=== PATIENT | male | born 1975 | race Hispanic/Latino ===

== ENCOUNTER 2020-02-02 06:19 | Inpatient (IN) | payer BC ==
[~2020-02-02] VITALS: Ht 172.7 cm; Wt 104.3 kg
[2020-02-02] MEDS ORDERED: MORPHINE SULFATE INJ 4 MG/ML INJ 1ML IV STA (06:31)
[2020-02-02] MEDS ORDERED: SODIUM CHLORIDE 0.9% 1000ML 1,000 ML IV STA (06:31)
[2020-02-02] MEDS ORDERED: PANTOPRAZOLE 40 MG 10ML VIAL IV STA (06:31)
[2020-02-02] MEDS ORDERED: ONDANSETRON HCL INJ 2MG/ML 2ML 2 MG/ML VIAL IV STA (06:31)
[2020-02-02 06:55] LABS: BASOPHILS # (AUTO) 0.1 (0.0-0.1); BASOPHILS % 0.6 % (0.0-1.0); EOSINOPHILS # (AUTO) 0.2 (0.0-0.4); EOSINOPHILS % 2.9 % (0.0-6.0); HEMATOCRIT 48.3 % (38.2-49.6); HEMOGLOBIN 16.5 g/dL (14.0-18.0); LYMPHOCYTES # (AUTO) 1.1 (1.0-3.2); LYMPHOCYTES % 13.5 % (18.0-39.1); MEAN CORPUSCULAR HEMOGLOBIN 29.6 pg (28-32); MEAN CORPUSCULAR HGB CONC 34.2 g/dL (31-35); MEAN CORPUSCULAR VOLUME 86.7 fL (81-99); MONOCYTES # (AUTO) 0.9 (0.2-0.8); MONOCYTES % 10.5 % (4.4-11.3); NEUTROPHILS % 71.8 % (38.7-80.0); PLATELET COUNT 182 x10e3/uL (140-360); RED BLOOD COUNT 5.57 x10e6/uL (4.3-5.7); RED CELL DISTRIBUTION WIDTH 12.4 % (11.7-14.4)
[2020-02-02] MEDS ORDERED: ONDANSETRON HCL INJ 2MG/ML 2ML 2 MG/ML VIAL ONE (06:55)
[2020-02-02] MEDS ORDERED: SODIUM CHLORIDE 0.9% 1000ML 1,000 ML ONE (06:55)
[2020-02-02] MEDS ORDERED: PANTOPRAZOLE 40 MG 10ML VIAL ONE (06:55)
[2020-02-02] MEDS ORDERED: MORPHINE SULFATE INJ 4 MG/ML INJ 1ML ONE (06:55)
[2020-02-02 06:58] LABS: CLARITY,URINE CLEAR (CLEAR); COLOR,URINE YELLOW (YELLOW); KETONES,URINE NEGATIVE (NEGATIVE); LEUKOCYTE ESTERASE ,URINE NEGATIVE (NEGATIVE); NITRITE,URINE NEGATIVE (NEGATIVE); URINE UROBILINOGEN 1 mg/dL (0.2 - 1)
[2020-02-02 06:59] LABS: PROTEIN,URINE DIPSTICK TRACE (NEGATIVE)
[2020-02-02 07:06] LABS: INR 0.87; PROTHROMBIN TIME 12.3 seconds (11.9-14.5)
[2020-02-02 07:11] LABS: BACTERIA,URINE RARE /HPF; EPITHELIAL CELLS,URINE FEW /LPF
[2020-02-02 07:14] LABS: ALANINE AMINOTRANSFERASE 20 IU/L (0-55); ALBUMIN 3.7 g/dL (3.5-5.0); ALBUMIN/GLOBULIN RATIO 1.1 (0.8-2.0); ALKALINE PHOSPHATASE 82 IU/L (40-150); AMYLASE 288 U/L (25-125); BLOOD UREA NITROGEN 9 mg/dL (7-26); BUN/CREATININE RATIO 11 (6-25); CALCIUM 8.6 mg/dL (8.4-10.2); CARBON DIOXIDE 22 mmol/L (22-29); CHLORIDE 107 mmol/L (98-107); CREATINE KINASE 108 IU/L (30-200); CREATININE, SERUM 0.84 mg/dL (0.72-1.25); EST GLOMERULAR FILTRATION RATE > 60 ML/MIN (60-); GLUCOSE 158 mg/dL (74-118); LIPASE 610 U/L (8-78); MAGNESIUM 1.6 MG/DL (1.3-2.1); SODIUM 137 mmol/L (136-145)
[2020-02-02] MEDS ORDERED: PIPER-TAZ 3.375 GM 50 ML ONE (07:37)
[2020-02-02] MEDS ORDERED: SODIUM CHLORIDE 0.9% 50ML 50 ML ONE (07:43)
[2020-02-02] MEDS ORDERED: IOPAMIDOL 370 MG/ML 200 ML INFUS..BTL INJ ONE (07:43)
[2020-02-02] MEDS: PIPER-TAZ 3.375 GM 50 ML IV SCH ×4 (07:46→23:51)
[2020-02-02] MEDS ORDERED: SODIUM CHLORIDE 0.9% 1000ML 1,000 ML IV SCH (08:30)
[2020-02-02 09:41] VITALS: BP 132/80
[2020-02-02 09:45] VITALS: BP 132/80
[2020-02-02 11:01] VITALS: BP 124/79
[2020-02-02] MEDS: HYDROMORPHONE 1MG/1ML INJ IV PRN ×3 (11:51→21:15)
[2020-02-02] MEDS ORDERED: DEXTROSE 50% SYRINGE 50 ML IV PRN (12:30)
[2020-02-02] MEDS ORDERED: HYDRALAZINE HCL 20 MG/ML VIAL IV PRN (12:30)
[2020-02-02] MEDS: LACTATED RINGER'S 1,000 ML INJ SCH ×3 (13:02→21:41)
[2020-02-02 15:48] VITALS: BP 122/73
[2020-02-02] MEDS: INSULIN REGULAR, HUMAN 100 UNIT/1 ML 3ML VIAL SQ SCH ×2 (16:30→20:08)
[2020-02-02] MEDS ORDERED: ATORVASTATIN CA20 MG PO (19:22)
[2020-02-02] MEDS ORDERED: GLIPIZIDE ER5 MG PO (19:22)
[2020-02-02] MEDS ORDERED: LISINOPRIL10 MG PO (19:22)
[2020-02-02] MEDS ORDERED: CYMBALTA60 MG PO (19:22)
[2020-02-02] MEDS ORDERED: SINGULAIR10 MG PO (19:22)
[2020-02-02] MEDS ORDERED: OMEPRAZOLE40 MG PO (19:22)
[2020-02-02 20:00] VITALS: BP 123/86
[2020-02-02 20:15] VITALS: BP 123/86
[2020-02-02] MEDS ORDERED: ZOLPIDEM TARTRATE 5 MG TAB PO PRN (21:00)
[2020-02-02] MEDS: ONDANSETRON HCL INJ 2MG/ML 2ML 2 MG/ML VIAL IV PRN (21:15)
[2020-02-03] VITALS (8 sets, daily range): BP systolic 127–146; BP diastolic 69–90
[2020-02-03] MEDS: ONDANSETRON HCL INJ 2MG/ML 2ML 2 MG/ML VIAL IV PRN ×4 (01:04→20:20)
[2020-02-03] MEDS: HYDROMORPHONE 1MG/1ML INJ IV PRN ×5 (01:04→20:20)
[2020-02-03] MEDS: ACETAMINOPHEN 650 MG SUPP PR PRN ×2 (01:57→13:31)
[2020-02-03] MEDS: LACTATED RINGER'S 1,000 ML INJ SCH ×6 (01:57→20:20)
[2020-02-03] MEDS ORDERED: PANTOPRAZOLE 40 MG 10ML VIAL IV STA (02:31)
[2020-02-03] MEDS: PANTOPRAZOLE 40 MG 10ML VIAL IV SCH ×2 (02:45→15:28)
[2020-02-03] MEDS: PIPER-TAZ 3.375 GM 50 ML IV SCH ×3 (05:57→17:12)
[2020-02-03] MEDS: INSULIN REGULAR, HUMAN 100 UNIT/1 ML 3ML VIAL SQ SCH ×4 (07:30→20:37)
[2020-02-03] MEDS ORDERED: PANTOPRAZOLE 40 MG 10ML VIAL IV SCH (09:00)
[2020-02-03 10:19] LABS: BASOPHILS % 0.4 % (0.0-1.0); EOSINOPHILS # (AUTO) 0.2 (0.0-0.4); EOSINOPHILS % 4.2 % (0.0-6.0); HEMATOCRIT 40.8 % (38.2-49.6); LYMPHOCYTES # (AUTO) 1.6 (1.0-3.2); LYMPHOCYTES % 34.2 % (18.0-39.1); MEAN CORPUSCULAR HEMOGLOBIN 29.9 pg (28-32); MEAN CORPUSCULAR HGB CONC 34.3 g/dL (31-35); MONOCYTES # (AUTO) 0.5 (0.2-0.8); NEUTROPHILS # (AUTO) 2.4 (2.1-6.9); NEUTROPHILS % 50.6 % (38.7-80.0); PLATELET COUNT 162 x10e3/uL (140-360); RED BLOOD COUNT 4.69 x10e6/uL (4.3-5.7); RED CELL DISTRIBUTION WIDTH 12.4 % (11.7-14.4)
[2020-02-03 10:42] LABS: ALANINE AMINOTRANSFERASE 20 IU/L (0-55); ALBUMIN/GLOBULIN RATIO 1.1 (0.8-2.0); ALKALINE PHOSPHATASE 46 IU/L (40-150); AMYLASE 69 U/L (25-125); ANION GAP 12.9 mmol/L (8-16); BLOOD UREA NITROGEN 6 mg/dL (7-26); BUN/CREATININE RATIO 8 (6-25); CALCIUM 8.4 mg/dL (8.4-10.2); CARBON DIOXIDE 26 mmol/L (22-29); CHLORIDE 105 mmol/L (98-107); CREATININE, SERUM 0.73 mg/dL (0.72-1.25); EST GLOMERULAR FILTRATION RATE > 60 ML/MIN (60-); GLUCOSE 117 mg/dL (74-118); LIPASE 38 U/L (8-78); POTASSIUM 3.9 mmol/L (3.5-5.1); SODIUM 140 mmol/L (136-145)
[2020-02-04] VITALS (8 sets, daily range): BP systolic 114–142; BP diastolic 70–87
[2020-02-04] MEDS: LACTATED RINGER'S 1,000 ML INJ SCH ×6 (00:10→20:34)
[2020-02-04] MEDS: PIPER-TAZ 3.375 GM 50 ML IV SCH ×5 (00:10→23:33)
[2020-02-04] MEDS: PANTOPRAZOLE 40 MG 10ML VIAL IV SCH ×2 (03:15→15:00)
[2020-02-04 05:58] LABS: BASOPHILS % 0.2 % (0.0-1.0); EOSINOPHILS # (AUTO) 0.2 (0.0-0.4); EOSINOPHILS % 3.2 % (0.0-6.0); HEMATOCRIT 41.6 % (38.2-49.6); HEMOGLOBIN 14.5 g/dL (14.0-18.0); LYMPHOCYTES # (AUTO) 1.3 (1.0-3.2); LYMPHOCYTES % 24.7 % (18.0-39.1); MEAN CORPUSCULAR HEMOGLOBIN 30.1 pg (28-32); MEAN CORPUSCULAR HGB CONC 34.9 g/dL (31-35); MEAN CORPUSCULAR VOLUME 86.3 fL (81-99); MONOCYTES # (AUTO) 0.5 (0.2-0.8); MONOCYTES % 8.8 % (4.4-11.3); NEUTROPHILS # (AUTO) 3.4 (2.1-6.9); NEUTROPHILS % 62.7 % (38.7-80.0); PLATELET COUNT 174 x10e3/uL (140-360); RED BLOOD COUNT 4.82 x10e6/uL (4.3-5.7)
[2020-02-04 06:32] LABS: ANION GAP 15.2 mmol/L (8-16); BLOOD UREA NITROGEN 5 mg/dL (7-26); BUN/CREATININE RATIO 6 (6-25); CALCIUM 9.3 mg/dL (8.4-10.2); CARBON DIOXIDE 26 mmol/L (22-29); CHLORIDE 104 mmol/L (98-107); CREATININE, SERUM 0.83 mg/dL (0.72-1.25); EST GLOMERULAR FILTRATION RATE > 60 ML/MIN (60-); GLUCOSE 104 mg/dL (74-118); MAGNESIUM 1.7 MG/DL (1.3-2.1); PHOSPHORUS 4.1 MG/DL (2.3-4.7); POTASSIUM 4.2 mmol/L (3.5-5.1); SODIUM 141 mmol/L (136-145)
[2020-02-04] MEDS: INSULIN REGULAR, HUMAN 100 UNIT/1 ML 3ML VIAL SQ SCH ×4 (07:30→20:53)
[2020-02-04] MEDS: TRAMADOL HCL 50 MG TAB PO PRN (15:37)
[2020-02-05] MEDS: TRAMADOL HCL 50 MG TAB PO PRN (00:08)
[2020-02-05 00:50] VITALS: BP 137/85
[2020-02-05] MEDS: PANTOPRAZOLE 40 MG 10ML VIAL IV SCH ×2 (02:45→13:44)
[2020-02-05 05:25] VITALS: BP 136/90
[2020-02-05] MEDS: PIPER-TAZ 3.375 GM 50 ML IV SCH ×2 (06:00→12:17)
[2020-02-05 06:15] LABS: BASOPHILS % 0.4 % (0.0-1.0); EOSINOPHILS # (AUTO) 0.3 (0.0-0.4); HEMATOCRIT 42.1 % (38.2-49.6); HEMOGLOBIN 14.6 g/dL (14.0-18.0); LYMPHOCYTES # (AUTO) 1.9 (1.0-3.2); LYMPHOCYTES % 36.2 % (18.0-39.1); MEAN CORPUSCULAR HEMOGLOBIN 29.8 pg (28-32); MEAN CORPUSCULAR HGB CONC 34.7 g/dL (31-35); MEAN CORPUSCULAR VOLUME 85.9 fL (81-99); MONOCYTES # (AUTO) 0.7 (0.2-0.8); NEUTROPHILS # (AUTO) 2.4 (2.1-6.9); PLATELET COUNT 184 x10e3/uL (140-360); RED CELL DISTRIBUTION WIDTH 11.9 % (11.7-14.4)
[2020-02-05 07:05] LABS: AMYLASE 70 U/L (25-125); LIPASE 32 U/L (8-78)
[2020-02-05 07:18] LABS: BLOOD UREA NITROGEN < 5 mg/dL (7-26); CALCIUM 9.2 mg/dL (8.4-10.2); CARBON DIOXIDE 28 mmol/L (22-29); CHLORIDE 103 mmol/L (98-107); CREATININE, SERUM 0.94 mg/dL (0.72-1.25); EST GLOMERULAR FILTRATION RATE > 60 ML/MIN (60-); GLUCOSE 99 mg/dL (74-118); SODIUM 140 mmol/L (136-145)
[2020-02-05 07:19] LABS: BUN/CREATININE RATIO 5 (6-25)
[2020-02-05 07:28] VITALS: BP 136/90
[2020-02-05] MEDS: INSULIN REGULAR, HUMAN 100 UNIT/1 ML 3ML VIAL SQ SCH ×2 (07:30→12:16)
[2020-02-05 09:31] VITALS: BP 134/54
[2020-02-05] MEDS ORDERED: OMEPRAZOLE40 MG PO (12:38)
[2020-02-05] MEDS ORDERED: PANTOPRAZOLE SO40 MG PO (12:45)
[2020-02-05 12:50] VITALS: BP 114/92
== END 2020-02-05 15:08 | disposition home or self-care (01) | DRG 391 ==
LOC: ER 06:30 → ERHOLD 08:31 → MED/SURG3 09:16
PROVIDERS: ADMIT Internal Medicine; ATTEND Internal Medicine
DX: K52.9 Noninfective gastroenteritis and colitis, unspecified (principal); K85.90 Acute pancreatitis without necrosis or infection, unspecified; E11.9 Type 2 diabetes mellitus without complications; E86.0 Dehydration; I10 Essential (primary) hypertension; F17.210 Nicotine dependence, cigarettes, uncomplicated; K21.9 Gastro-esophageal reflux disease without esophagitis; F10.10 Alcohol abuse, uncomplicated; K75.81 Nonalcoholic steatohepatitis (NASH); Z20.828 Contact with and (suspected) exposure to other viral communicable diseases
CPT/HCPCS: 36415; 71045; 74177; 76705; 80048; 80053; 81001; 82150; 82550; 82553; 82948; 83690; 83735; 84100; 84478; 84484; 85025; 85610; 85730; 87086; 93005; 99284; J1170; J2270; J2405; J2543; J7030; J7121; Q9967; U0002

== ENCOUNTER 2020-02-09 19:21 | Emergency (ER) | payer BC ==
[~2020-02-09] VITALS: Ht 172.7 cm; Wt 104.3 kg
[~2020-02-09 19:21] MED LIST: ATORVASTATIN CA20 MG PO; CYMBALTA60 MG PO; GLIPIZIDE ER5 MG PO; LISINOPRIL10 MG PO; OMEPRAZOLE40 MG PO; PANTOPRAZOLE SO40 MG PO; SINGULAIR10 MG PO
[2020-02-09] MEDS ORDERED: SODIUM CHLORIDE 0.9% 1000ML 1,000 ML IV STA (19:24)
[2020-02-09] MEDS ORDERED: MORPHINE SULFATE INJ 4 MG/ML INJ 1ML IV STA (19:35)
[2020-02-09 19:40] LABS: BASOPHILS % 0.3 % (0.0-1.0); EOSINOPHILS # (AUTO) 0.2 (0.0-0.4); HEMATOCRIT 42.6 % (38.2-49.6); HEMOGLOBIN 14.4 g/dL (14.0-18.0); LYMPHOCYTES # (AUTO) 1.5 (1.0-3.2); LYMPHOCYTES % 25.2 % (18.0-39.1); MEAN CORPUSCULAR HEMOGLOBIN 29.4 pg (28-32); MEAN CORPUSCULAR HGB CONC 33.8 g/dL (31-35); MEAN CORPUSCULAR VOLUME 86.9 fL (81-99); MONOCYTES # (AUTO) 0.5 (0.2-0.8); MONOCYTES % 8.3 % (4.4-11.3); NEUTROPHILS # (AUTO) 3.8 (2.1-6.9); NEUTROPHILS % 62.7 % (38.7-80.0); PLATELET COUNT 227 x10e3/uL (140-360); RED CELL DISTRIBUTION WIDTH 12.5 % (11.7-14.4)
[2020-02-09] MEDS ORDERED: ONDANSETRON HCL INJ 2MG/ML 2ML 2 MG/ML VIAL IV STA (19:48)
[2020-02-09 19:57] LABS: ALANINE AMINOTRANSFERASE 27 IU/L (0-55); ALBUMIN 3.6 g/dL (3.5-5.0); ALBUMIN/GLOBULIN RATIO 1.1 (0.8-2.0); ALKALINE PHOSPHATASE 76 IU/L (40-150); ANION GAP 11.8 mmol/L (8-16); BLOOD UREA NITROGEN 12 mg/dL (7-26); BUN/CREATININE RATIO 16 (6-25); CALCIUM 8.6 mg/dL (8.4-10.2); CARBON DIOXIDE 23 mmol/L (22-29); CHLORIDE 108 mmol/L (98-107); CREATININE, SERUM 0.77 mg/dL (0.72-1.25); EST GLOMERULAR FILTRATION RATE > 60 ML/MIN (60-); GLUCOSE 172 mg/dL (74-118); LIPASE 58 U/L (8-78); POTASSIUM 3.8 mmol/L (3.5-5.1); SODIUM 139 mmol/L (136-145)
[2020-02-09 20:03] LABS: CLARITY,URINE HAZY (CLEAR); COLOR,URINE YELLOW (YELLOW); KETONES,URINE NEGATIVE (NEGATIVE); LEUKOCYTE ESTERASE ,URINE NEGATIVE (NEGATIVE); NITRITE,URINE NEGATIVE (NEGATIVE); PROTEIN,URINE DIPSTICK NEGATIVE (NEGATIVE); URINE UROBILINOGEN 1 mg/dL (0.2 - 1)
[2020-02-09 20:04] LABS: BACTERIA,URINE FEW /HPF; EPITHELIAL CELLS,URINE FEW /LPF; RBC,URINE 0-5 /HPF (0-5); WBC,URINE (MAN) 0-5 /HPF (0-5)
[2020-02-09] MEDS ORDERED: DONNATAL/LIDOCAINE/MAALOX 30 ML SUSP PO STA (20:21)
[2020-02-09] MEDS ORDERED: LIDOCAINE VISC 2% SOLN 15 ML UDC ONE (20:41)
[2020-02-09] MEDS ORDERED: BELLADONNA ALK/PHENOBARBITAL 5 ML UDC ONE (20:41)
[2020-02-09] MEDS ORDERED: MAGNESIUM/ALUMINUM/SIMETHICONE 30 ML UDC ONE (20:42)
[2020-02-09 20:51] VITALS: BP 142/71
[2020-02-09] MEDS ORDERED: PEPCID20 MG PO (20:51)
== END 2020-02-09 20:59 | disposition home or self-care (01) ==
LOC: ER 19:25
DX: R10.13 Epigastric pain (principal); R11.0 Nausea; I10 Essential (primary) hypertension; E11.9 Type 2 diabetes mellitus without complications; M54.9 Dorsalgia, unspecified; G89.29 Other chronic pain; F17.210 Nicotine dependence, cigarettes, uncomplicated
CPT/HCPCS: 36415; 80053; 81001; 83690; 85025; 99283; J2270; J2405; J7030

== ENCOUNTER → 2020-03-10 | Day surgery (SDC) | payer BC ==
[~2020-03-10] MED LIST changes: +HYDROCODON-ACE1 EA11 PO; +LIDOCAINE HCL 2% LOCAL INJ 5 ML SDV VIAL INJ ONE; +METOCLOPRAMIDE HCL 10 MG/2ML VIAL ONE; +PANTOPRAZOLE 40 MG 10ML VIAL ONE; +PEPCID20 MG PO; +PROPOFOL IV EMULSION 10 MG/ML 20 ML VIAL ONE; +SUCRALFATE1 GM PO; +ULTRAM 50MG50 MG PO
[2020-03-10 08:37] VITALS: BP 126/74
== END | disposition home or self-care (01) ==
LOC: OR 06:05
PROVIDERS: ATTEND Internal Medicine Gastroenterology
DX: K29.60 Other gastritis without bleeding (principal); K31.7 Polyp of stomach and duodenum; K20.90 Esophagitis, unspecified without bleeding; K44.9 Diaphragmatic hernia without obstruction or gangrene; K21.9 Gastro-esophageal reflux disease without esophagitis; K76.0 Fatty (change of) liver, not elsewhere classified; I10 Essential (primary) hypertension; E78.00 Pure hypercholesterolemia, unspecified; M54.9 Dorsalgia, unspecified; E11.9 Type 2 diabetes mellitus without complications; F17.210 Nicotine dependence, cigarettes, uncomplicated; Z01.810 Encounter for preprocedural cardiovascular examination; Z01.812 Encounter for preprocedural laboratory examination; Z20.822 Contact with and (suspected) exposure to COVID-19; Z79.84 Long term (current) use of oral hypoglycemic drugs; Z68.35 Body mass index [BMI] 35.0-35.9, adult; Z87.19 Personal history of other diseases of the digestive system; Z80.0 Family history of malignant neoplasm of digestive organs
CPT/HCPCS: 43239; 93005; C9113; J2001; J2704; J2765; U0002

== ENCOUNTER 2020-03-19 13:57 | Emergency (ER) | payer BC ==
[~2020-03-19] VITALS: Ht 172.7 cm; Wt 104.3 kg
[~2020-03-19 13:57] MED LIST changes: -LIDOCAINE HCL 2% LOCAL INJ 5 ML SDV VIAL INJ ONE; -METOCLOPRAMIDE HCL 10 MG/2ML VIAL ONE; -PANTOPRAZOLE 40 MG 10ML VIAL ONE; -PROPOFOL IV EMULSION 10 MG/ML 20 ML VIAL ONE
[2020-03-19] MEDS ORDERED: FENTANYL CITRATE/PF 100MCG/2 ML INJ IV ONE (14:15)
[2020-03-19 14:32] LABS: BASOPHILS % 0.5 % (0.0-1.0); EOSINOPHILS # (AUTO) 0.1 (0.0-0.4); EOSINOPHILS % 0.7 % (0.0-6.0); HEMOGLOBIN 15.5 g/dL (14.0-18.0); LYMPHOCYTES # (AUTO) 2.1 (1.0-3.2); LYMPHOCYTES % 25.9 % (18.0-39.1); MEAN CORPUSCULAR HEMOGLOBIN 29.4 pg (28-32); MEAN CORPUSCULAR HGB CONC 33.7 g/dL (31-35); MEAN CORPUSCULAR VOLUME 87.3 fL (81-99); MONOCYTES # (AUTO) 0.5 (0.2-0.8); MONOCYTES % 6.6 % (4.4-11.3); NEUTROPHILS # (AUTO) 5.4 (2.1-6.9); NEUTROPHILS % 65.8 % (38.7-80.0); PLATELET COUNT 216 x10e3/uL (140-360); RED BLOOD COUNT 5.27 x10e6/uL (4.3-5.7); RED CELL DISTRIBUTION WIDTH 12.4 % (11.7-14.4)
[2020-03-19 14:47] LABS: ALANINE AMINOTRANSFERASE 25 IU/L (0-55); ALBUMIN 4.2 g/dL (3.5-5.0); ALBUMIN/GLOBULIN RATIO 1.3 (0.8-2.0); ALKALINE PHOSPHATASE 68 IU/L (40-150); ANION GAP 15.2 mmol/L (8-16); BLOOD UREA NITROGEN 13 mg/dL (7-26); BUN/CREATININE RATIO 13 (6-25); CALCIUM 9.5 mg/dL (8.4-10.2); CARBON DIOXIDE 25 mmol/L (22-29); CHLORIDE 102 mmol/L (98-107); CREATININE, SERUM 0.99 mg/dL (0.72-1.25); EST GLOMERULAR FILTRATION RATE > 60 ML/MIN (60-); GLUCOSE 190 mg/dL (74-118); POTASSIUM 4.2 mmol/L (3.5-5.1); SODIUM 138 mmol/L (136-145)
[2020-03-19] MEDS ORDERED: TYLENOL # 31 EA PO (15:08)
[2020-03-19 15:21] VITALS: BP 134/76
== END 2020-03-19 15:22 | disposition home or self-care (01) ==
LOC: ER 14:26
DX: R10.11 Right upper quadrant pain (principal); I10 Essential (primary) hypertension; E11.9 Type 2 diabetes mellitus without complications; M54.9 Dorsalgia, unspecified; Z79.84 Long term (current) use of oral hypoglycemic drugs
CPT/HCPCS: 36415; 80053; 83690; 85025; 99284; J3010

== ENCOUNTER → 2020-04-11 | Day surgery (SDC) | payer BC ==
[~2020-04-11] MED LIST changes: +BUPIVACAINE 0.25% 30ML SDV ONE; +DEXAMETHASONE SOD PHOS INJ 4 MG/ML VIAL ONE; +EPHEDRINE SULFATE INJ 50 MG/ML VIAL ONE; +FENTANYL CITRATE/PF 100MCG/2 ML INJ ONE; +FLUOXETINE HCL10 MG PO; +GLYCOPYRROLATE INJ 0.2 MG/ML VIAL ONE; +HYDROCODONE/APAP 7.5MG-325MG 1 EA TAB ONE; +IOPAMIDOL 300MG/ML 50ML INFUS..BTL IV ONE; +JANUMET 50-1,01 EACH PO; +KETOROLAC TROMETHAMINE 30 MG/ML VIAL ONE; +LIDOCAINE 1% W/EPINEPHRINE 20 ML VIAL ONE; +LIDOCAINE HCL 2% LOCAL INJ 5 ML SDV VIAL INJ ONE; +MIDAZOLAM HCL 2 MG/2 ML VIAL ONE; +NEOSTIGMINE 1 MG/ML 10ML VIAL ONE; +ONDANSETRON HCL INJ 2MG/ML 2ML 2 MG/ML VIAL ONE; +PROPOFOL IV EMULSION 10 MG/ML 20 ML VIAL ONE; +ROCURONIUM BROMIDE 10 MG/ML 5ML VIAL IV ONE; +SEVOFLURANE INHAL SOLN 250 ML PEN BTL ONE; +SODIUM CHLORIDE 0.9% 50ML 0 ML ONE; +TYLENOL # 31 EA PO
[2020-04-11 11:30] VITALS: BP 124/61
== END | disposition home or self-care (01) ==
LOC: OR 06:23
PROVIDERS: ATTEND Surgery
DX: K80.10 Calculus of gallbladder with chronic cholecystitis without obstruction (principal); K85.90 Acute pancreatitis without necrosis or infection, unspecified; K82.8 Other specified diseases of gallbladder; E11.9 Type 2 diabetes mellitus without complications; I10 Essential (primary) hypertension; M54.5 Low back pain; E78.5 Hyperlipidemia, unspecified; K21.9 Gastro-esophageal reflux disease without esophagitis; F32.9 Major depressive disorder, single episode, unspecified; Z01.812 Encounter for preprocedural laboratory examination; Z20.822 Contact with and (suspected) exposure to COVID-19; Z79.84 Long term (current) use of oral hypoglycemic drugs
CPT/HCPCS: 36415; 47563; 74300; 82948; 88304; C1766; J1100; J1885; J2001; J2250; J2405; J2704; J2710; J3010; U0002

== ENCOUNTER 2021-02-02 19:10 | Emergency (ER) | payer BC ==
[~2021-02-02] VITALS: Ht 172.7 cm; Wt 104.3 kg
[~2021-02-02 19:10] MED LIST changes: -BUPIVACAINE 0.25% 30ML SDV ONE; -DEXAMETHASONE SOD PHOS INJ 4 MG/ML VIAL ONE; -EPHEDRINE SULFATE INJ 50 MG/ML VIAL ONE; -FENTANYL CITRATE/PF 100MCG/2 ML INJ ONE; -GLYCOPYRROLATE INJ 0.2 MG/ML VIAL ONE; -HYDROCODONE/APAP 7.5MG-325MG 1 EA TAB ONE; -IOPAMIDOL 300MG/ML 50ML INFUS..BTL IV ONE; -KETOROLAC TROMETHAMINE 30 MG/ML VIAL ONE; -LIDOCAINE 1% W/EPINEPHRINE 20 ML VIAL ONE; -LIDOCAINE HCL 2% LOCAL INJ 5 ML SDV VIAL INJ ONE; -MIDAZOLAM HCL 2 MG/2 ML VIAL ONE; -NEOSTIGMINE 1 MG/ML 10ML VIAL ONE; -ONDANSETRON HCL INJ 2MG/ML 2ML 2 MG/ML VIAL ONE; -PROPOFOL IV EMULSION 10 MG/ML 20 ML VIAL ONE; -ROCURONIUM BROMIDE 10 MG/ML 5ML VIAL IV ONE; -SEVOFLURANE INHAL SOLN 250 ML PEN BTL ONE; -SODIUM CHLORIDE 0.9% 50ML 0 ML ONE
== END 2021-02-02 20:34 | disposition home or self-care (01) ==
LOC: ER 19:20
DX: J06.9 Acute upper respiratory infection, unspecified (principal); I10 Essential (primary) hypertension; E11.9 Type 2 diabetes mellitus without complications; Z79.84 Long term (current) use of oral hypoglycemic drugs
CPT/HCPCS: 93005; 99282

== ENCOUNTER 2021-07-11 13:48 | Emergency (ER) | payer BC ==
[~2021-07-11] VITALS: Ht 172.7 cm; Wt 108.9 kg
[2021-07-11] MEDS ORDERED: FAMOTIDINE 20 MG/2 ML VIAL IV STA (14:40)
[2021-07-11] MEDS ORDERED: ONDANSETRON HCL INJ 2MG/ML 2ML 2 MG/ML VIAL IV STA (14:40)
[2021-07-11] MEDS ORDERED: KETOROLAC TROMETHAMINE 30 MG/ML VIAL IV STA (14:40)
[2021-07-11] MEDS ORDERED: SODIUM CHLORIDE 0.9% 1000ML 1,000 ML IV SCH (14:45)
[2021-07-11] MEDS ORDERED: IOPAMIDOL 370 MG/ML 100 ML INFUS..BTL INJ ONE (15:08)
[2021-07-11] MEDS ORDERED: FAMOTIDINE 20 MG/2 ML VIAL IV ONE (15:18)
[2021-07-11] MEDS ORDERED: ONDANSETRON HCL INJ 2MG/ML 2ML 2 MG/ML VIAL ONE (15:18)
[2021-07-11] MEDS ORDERED: KETOROLAC TROMETHAMINE 30 MG/ML VIAL ONE (15:18)
[2021-07-11] MEDS ORDERED: SODIUM CHLORIDE 0.9% 1000ML 1,000 ML ONE (15:18)
[2021-07-11 16:58] VITALS: BP 112/78
[2021-07-11] MEDS ORDERED: ONDANSETRON ODT4 MG PO (17:04)
== END 2021-07-11 17:12 | disposition home or self-care (01) ==
LOC: FSED 14:14
DX: R10.30 Lower abdominal pain, unspecified (principal); R11.0 Nausea; E11.65 Type 2 diabetes mellitus with hyperglycemia; I10 Essential (primary) hypertension; E78.5 Hyperlipidemia, unspecified; K21.9 Gastro-esophageal reflux disease without esophagitis; M54.50 Low back pain, unspecified; G89.29 Other chronic pain
CPT/HCPCS: 74177; 80048; 80076; 81003; 85025; 99284; J1885; J2405; J7030; Q9967

== ENCOUNTER 2021-08-25 15:13 | Emergency (ER) | payer BC ==
[~2021-08-25] VITALS: Ht 172.7 cm; Wt 111.3 kg
[~2021-08-25 15:13] MED LIST changes: +ONDANSETRON ODT4 MG PO
[2021-08-25] MEDS ORDERED: ZITHROMAX250 MG PO (17:29)
[2021-08-25] MEDS ORDERED: DEXAMETHASONE4 MG PO (17:31)
== END 2021-08-25 17:53 | disposition home or self-care (01) ==
LOC: FSED 15:26
DX: R05.9 Cough, unspecified (principal); U07.1 COVID-19; J20.9 Acute bronchitis, unspecified; E11.65 Type 2 diabetes mellitus with hyperglycemia; I10 Essential (primary) hypertension; E78.5 Hyperlipidemia, unspecified; M54.9 Dorsalgia, unspecified; G89.29 Other chronic pain
CPT/HCPCS: 36415; 71046; 82948; 99283

== ENCOUNTER 2022-03-20 12:03 | Emergency (ER) | payer BC ==
[~2022-03-20] VITALS: Ht 172.7 cm; Wt 111.1 kg
[~2022-03-20 12:03] MED LIST changes: +DEXAMETHASONE4 MG PO; +ZITHROMAX250 MG PO
[2022-03-20] MEDS ORDERED: SODIUM CHLORIDE 0.9% 1000ML 1,000 ML IV STA (12:08)
[2022-03-20] MEDS ORDERED: ONDANSETRON HCL INJ 2MG/ML 2ML 2 MG/ML VIAL IV STA (12:08)
[2022-03-20] MEDS ORDERED: DICYCLOMINE HCL 20 MG/2 ML VIAL IM ONE (12:15)
[2022-03-20 12:27] LABS: BASOPHILS % 0.5 % (0.0-1.0); EOSINOPHILS # (AUTO) 0.2 (0.0-0.4); EOSINOPHILS % 2.6 % (0.0-6.0); HEMATOCRIT 46.8 % (38.2-49.6); HEMOGLOBIN 14.7 g/dL (14.0-18.0); LYMPHOCYTES # (AUTO) 1.9 (1.0-3.2); LYMPHOCYTES % 29.2 % (18.0-39.1); MEAN CORPUSCULAR HEMOGLOBIN 28.5 pg (28-32); MEAN CORPUSCULAR HGB CONC 31.4 g/dL (31-35); MEAN CORPUSCULAR VOLUME 90.9 fL (81-99); MONOCYTES # (AUTO) 0.4 (0.2-0.8); MONOCYTES % 6.4 % (4.4-11.3); PLATELET COUNT 216 x10e3/uL (140-360); RED BLOOD COUNT 5.15 x10e6/uL (4.3-5.7); RED CELL DISTRIBUTION WIDTH 12.2 % (11.7-14.4)
[2022-03-20 12:30] LABS: CLARITY,URINE HAZY (CLEAR); COLOR,URINE YELLOW (YELLOW); KETONES,URINE NEGATIVE (NEGATIVE); LEUKOCYTE ESTERASE ,URINE NEGATIVE (NEGATIVE); NITRITE,URINE NEGATIVE (NEGATIVE); PROTEIN,URINE DIPSTICK NEGATIVE (NEGATIVE); URINE UROBILINOGEN 0.2 mg/dL (0.2 - 1)
[2022-03-20 12:32] LABS: BACTERIA,URINE FEW /HPF; EPITHELIAL CELLS,URINE FEW /LPF; RBC,URINE 0-5 /HPF (0-5); WBC,URINE (MAN) 0-5 /HPF (0-5)
[2022-03-20] MEDS ORDERED: SODIUM CHLORIDE 0.9% 1000ML 1,000 ML ONE (12:36)
[2022-03-20 12:37] LABS: INR 0.97; PROTHROMBIN TIME 13.1 seconds (11.9-14.5)
[2022-03-20 12:38] LABS: PARTIAL THROMBOPLASTIN TIME 29.6 seconds (23.8-35.5)
[2022-03-20 12:45] LABS: ALANINE AMINOTRANSFERASE 47 IU/L (0-55); ALBUMIN/GLOBULIN RATIO 1.2 (0.8-2.0); ALKALINE PHOSPHATASE 86 IU/L (40-150); AMYLASE 88 U/L (25-125); ANION GAP 13.2 mmol/L (8-16); BLOOD UREA NITROGEN 8 mg/dL (7-26); BUN/CREATININE RATIO 10 (6-25); CALCIUM 9.6 mg/dL (8.4-10.2); CARBON DIOXIDE 27 mmol/L (22-29); CHLORIDE 102 mmol/L (98-107); CREATINE KINASE 98 IU/L (30-200); CREATININE, SERUM 0.79 mg/dL (0.72-1.25); GLUCOSE 193 mg/dL (74-118); LIPASE 40 U/L (8-78); MAGNESIUM 1.4 MG/DL (1.3-2.1); POTASSIUM 4.2 mmol/L (3.5-5.1); SODIUM 138 mmol/L (136-145)
[2022-03-20] MEDS ORDERED: IOPAMIDOL 370 MG/ML 100 ML INFUS..BTL INJ ONE (13:08)
[2022-03-20] MEDS ORDERED: LEVSIN-SL0.125 MG SL (15:56)
[2022-03-20] MEDS ORDERED: ONDANSETRON ODT4 MG PO (15:56)
== END 2022-03-20 16:01 | disposition home or self-care (01) ==
LOC: ER 12:08
DX: R10.12 Left upper quadrant pain (principal); K29.70 Gastritis, unspecified, without bleeding; R11.0 Nausea; K57.90 Diverticulosis of intestine, part unspecified, without perforation or abscess without bleeding; K44.9 Diaphragmatic hernia without obstruction or gangrene; K21.9 Gastro-esophageal reflux disease without esophagitis
CPT/HCPCS: 36415; 74177; 80053; 81001; 82150; 82550; 82553; 83690; 83735; 84484; 85025; 85610; 85730; 93005; 99284; C9113; J0500; J2405; J7030; Q9967

== ENCOUNTER 2023-08-21 01:14 | Emergency (ER) | payer BC ==
[~2023-08-21] VITALS: Ht 172.7 cm; Wt 110.2 kg
[~2023-08-21 01:14] MED LIST changes: +ACTOS15 MG PO; +LEVSIN-SL0.125 MG SL; +METFORMIN HCL850 MG PO; +METRONIDAZOLE500 MG PO; +OZEMPIC0.25 MG/0. SC; +REGLAN5 MG PO
[2023-08-21 02:26] VITALS: PULSE 106; RESP 18; TEMP 98.3
[2023-08-21] MEDS ORDERED: CEFTRIAXONE 1 GM VIAL IM ONE (02:45)
[2023-08-21] MEDS ORDERED: AMOX TR-K CLV1 EAC2 PO (04:19)
[2023-08-21] MEDS: TRAMADOL HCL 50 MG TAB PO ONE (04:20)
[2023-08-21] MEDS: SODIUM CHLORIDE 0.9% 1000ML 1,000 ML IV ONE (04:24)
[2023-08-21] MEDS ORDERED: IBUPROFEN600 MG PO (04:40)
[2023-08-21 05:23] VITALS: BP 138/82; PULSE 100; RESP 18; TEMP 98.4; O2SAT 97
== END 2023-08-21 05:23 | disposition home or self-care (01) ==
LOC: FSED 01:33
DX: L03.317 Cellulitis of buttock (principal); E11.65 Type 2 diabetes mellitus with hyperglycemia; I10 Essential (primary) hypertension; E78.5 Hyperlipidemia, unspecified; M54.9 Dorsalgia, unspecified; G89.29 Other chronic pain
CPT/HCPCS: 80053; 85025; 99283; J0696; J7030

== ENCOUNTER 2024-02-18 20:38 | Emergency (ER) | payer BC ==
[~2024-02-18] VITALS: Ht 172.7 cm; Wt 109.8 kg
[~2024-02-18 20:38] MED LIST changes: +AMOX TR-K CLV1 EAC2 PO; +IBUPROFEN600 MG PO
[2024-02-18 20:42] VITALS: TEMP 98.6
[2024-02-18] MEDS: ACETAMINOPHEN 325 MG TAB PO ONE (22:05)
[2024-02-18] MEDS: SODIUM CHLORIDE 0.9% 1000ML 1,000 ML IV ONE (22:05)
[2024-02-18 22:20] VITALS: PULSE 75; RESP 18
[2024-02-18] MEDS: KETOROLAC TROMETHAMINE 30 MG/ML VIAL IV STA (23:47)
[2024-02-18 23:58] VITALS: BP 141/76; PULSE 76; RESP 18; TEMP 98.6; O2SAT 99
== END 2024-02-18 23:58 | disposition home or self-care (01) ==
LOC: FSED 21:11
DX: R51.9 Headache, unspecified (principal); H53.8 Other visual disturbances; I10 Essential (primary) hypertension; E11.9 Type 2 diabetes mellitus without complications; E78.5 Hyperlipidemia, unspecified; E86.0 Dehydration; E86.1 Hypovolemia; R53.81 Other malaise; R53.83 Other fatigue; M54.9 Dorsalgia, unspecified; G89.29 Other chronic pain; Z11.52 Encounter for screening for COVID-19; F17.210 Nicotine dependence, cigarettes, uncomplicated
CPT/HCPCS: 0223U; 70450; 80053; 85025; 87400; 96374; 99284; J1885; J7030